=== PATIENT | male | born 1995 | race Caucasian/White ===

== ENCOUNTER 2017-06-12 05:23 | Emergency (ER) | payer OTHER ==
[~2017-06-12] VITALS: Ht 177.8 cm; Wt 131.5 kg
[2017-06-12 05:32] VITALS: BP_SYST 152
[2017-06-12] MEDS ORDERED: KETOROLAC TROMETHAMINE 60 MG/2 ML VIAL IM ONE (05:45)
[2017-06-12 05:56] VITALS: BP_SYST 143
== END 2017-06-12 05:56 | disposition home or self-care (01) ==
LOC: SED 05:23
DX: H60.92 Unspecified otitis externa, left ear (principal)
CPT/HCPCS: 96372; 99283; J1885